=== PATIENT | female | born 1960 | race Caucasian/White ===

== ENCOUNTER 2016-10-10 19:42 | Emergency (ER) | payer MEDICAID, OTHER ==
[~2016-10-10] VITALS: Ht 160 cm; Wt 74.5 kg
[~2016-10-10 19:42] MED LIST: CYCL-319 PO; IBUP-1542 PO
[2016-10-10 19:48] VITALS: Ht 160 cm; Wt 74.5 kg
[2016-10-10] MEDS ORDERED: ALBUTEROL 0.5% (NEB) 2.5 MG/0.5 ML AMP NEB STA (20:32)
[2016-10-10] MEDS ORDERED: IPRATROPIUM (NEB) 0.5 MG/2.5 ML AMP NEB STA (20:32)
--- NOTE | 2016-10-10 20:48 | ERD ---
ER Documentation Chief Complaint Date/Time DATE: 10/10/16 TIME: 20:45 Chief Complaint FEVER WITH COUGH X 5 DAYS. CHEST AND UPPER BACK PAIN HPI 55-year-old female presents here in emergency department for complaints of fever , cough, shortness of breath and wheezing upper chest wall pain and upper back pain for 5 days. Patient started to have cough wheezing short of breath, patient has history of asthma, to leftover Cipro from left infection. Patient denies any dyspnea on exertion or dyspnea on lying down. Patient denies any dizziness. Patient denies any leg swelling. ROS All systems reviewed and are negative except as per history of present illness. Medications Home Meds Active Scripts Cyclobenzaprine Hcl* (Cyclobenzaprine Hcl*) 10 Mg Tablet, 10 MG PO TID, #15 TAB Prov:FAB WEEKS. LEATHER CRAFTER 07/13/15 Ibuprofen* (Motrin*) 600 Mg Tab, 600 MG PO Q6H Y for PAIN AND OR ELEVATED TEMP, #30 TAB Prov:FAB WEEKS. LEATHER CRAFTER 07/13/15 Allergies Allergies: Coded Allergies: ammonium chloride (Verified Allergy, Unknown, 07/12/15) hydrogen peroxide (Verified Allergy, Unknown, 07/12/15) niacin (Verified Allergy, Unknown, 07/12/15) PMhx/Soc Medical and Surgical Hx: pt denies Surgical Hx History of Surgery: No Anesthesia Reaction: No Hx Neurological Disorder: No Hx Respiratory Disorders: Yes (asthma) Hx Cardiac Disorders: No Hx Psychiatric Problems: No Hx Miscellaneous Medical Probl: No Hx Alcohol Use: No Hx Substance Use: No Hx Tobacco Use: No Smoking Status: Never smoker FmHx Family History: No coronary disease, No diabetes, No other Physical Exam Vitals Vital Signs Date Time Temp Pulse Resp B/P Pulse Ox O2 Delivery O2 Flow Rate FiO2 10/10/16 21:00 83 23 98 21 10/10/16 19:48 98.0 100 18 127/82 97 Physical Exam GENERAL: The patient is well developed and appropriate for usual state of health, in no apparent distress. CHEST: Clear to auscultation bilaterally. There are no rales, wheezes or rhonchi. HEART: Regular rate and rhythm. No murmurs, clicks, rubs or gallops. No S3 or S4. ABDOMEN: Soft, nontender and nondistended. Good bowel sounds. No rebound or guarding. No gross peritonitis. No gross organomegaly or masses. No Barger sign or McBurney point tenderness. BACK: No midline or flank tenderness. EXTREMITIES: Equal pulses bilaterally. There is no peripheral clubbing, cyanosis or edema. No focal swelling or erythema. Full range of motion. Grossly neurovascularly intact. NEURO: Alert and oriented. Cranial nerves 2-12 intact. Motor strength in all 4 extremities with 5/5 strength. Sensation grossly intact. Normal speech and gait. SKIN: There is no apparent rash or petechia. The skin is warm and dry. HEMATOLOGIC AND LYMPHATIC: There is no evidence of excessive bruising or lymphedema. No gross cervical, axillary, or inguinal lymphadenopathy. Results 24 hrs Current Medications Medications (Trade) Dose Ordered Sig/Mary Route PRN Reason Start Time Stop Time Status Last Admin Dose Admin Albuterol (Proventil 0.5% (Neb)) 5 mg ONCE STAT NEB 10/10/16 20:32 10/10/16 20:34 DC 10/10/16 20:55 Ipratropium [place] (Atrovent 0.02% (Neb)) 0.5 mg ONCE STAT NEB 10/10/16 20:32 10/10/16 20:34 DC 10/10/16 20:55 Breathing treatment of albuterol and Atrovent was given here in emergency department, after treatment, patient's lungs sounds are clear and patient's oxygenation is better. Patient verbalized feeling much better. EKG was done, read by me and is normal sinus rhythm at a rate of 87, normal axis , there is no ST changes or changes in the EKG that indicates any cardiac emergencies at this time. Patient's EKG was also reviewed by Dr. Santana. Impression: no acute findings on EKG PROCEDURE: XR Chest AP portable CLINICAL INDICATION: Chest pain, cough TECHNIQUE: An AP portable radiograph of the chest was submitted. COMPARISON: None. FINDINGS: Support Hardware: None Cardiovascular: The cardiovascular silhouette appears unremarkable. Lung Sal[place]ar: A 4 mm nodule projects to the lateral right upper lung zone. The lung saldivar are otherwise clear. Pleural Spaces: No pneumothorax or pleural effusion is identified. Osseous Structures: The osseous structures appear intact. Soft Tissues: The soft tissues appear generous. IMPRESSION: 1. Incidental 4 mm nodule seen in the lateral base of the right upper lobe. 812-month PA chest follow-up is indicated. 2. Otherwise, unremarkable portable chest. Physician Jose Guadalupe Date Time Electronically viewed and signed by Tracy Nettles Physician on 10/10/2016 21:53 RH/ CC: ROLY VÁZQUEZ LEATHER CRAFTER Procedures/MDM Medical Decision Making: Patient symptoms are most likely consistent with acute bronchitis, which viral in origin. There is low suspicion for Pneumonia at this time since patients lungs sounds are clear, patient O2 saturation is normal and patient doesnt show any respiratory distress. Patients chest xray doesnt show infiltrates or any other cardiopulmonary emergencies at this time. There is low suspicion for other cardiopulmonary emergencies at this time such as CHF, Pulmonary Embolism, Pneumothorax, Aortic Aneurysm or any other cardiopulmonary emergencies at this time. There is low suspicion for sepsis. Patient appears well and is hemodynamically stable. Fever is controlled with medicines. There is an incidental upon finding of a pulmonary nodule, patient was advised to follow on it, repeat CT scans or chest x-ray within 8-12 months. Disposition: Home. Condition: Stable Prescriptions: Ibuprofen GUAIFENESIN with codeine Zyrtec ibuprofen prednisone Instructions: Patient is advised to take medications as prescribed. Patient is advised to rest. Patient advised to increase fluid intake, do humidifier at home and if possible, do salt water gargles. Patient is advised that if symptoms are worse, shortness of breath, uncontrolled fever, stridor, vomiting, worst signs and symptoms to return to emergency department immediately. Otherwise, patient is advised to follow up with primary doctor in 5-7 days. Departure Diagnosis: Primary Impression: Acute bronchitis Bronchitis organism: unspecified organism Qualified Code: J20.9 - Acute bronchitis, unspecified organism Additional Impression: Pulmonary nodule Condition: Stable Patient Instructions: Bronchitis With Wheezing (Adult), Pulmonary Nodule, Solitary Additional Instructions: Patient is advised to take medications as prescribed. Patient is advised to rest. Patient advised to increase fluid intake, do humidifier at home and if possible, do salt water gargles. Patient is advised that if symptoms are worse, shortness of breath, uncontrolled fever, stridor, vomiting, worst signs and symptoms to return to emergency department immediately. Otherwise, patient is advised to follow up with primary doctor in 5-7 days. ROLY VÁZQUEZ. KRISTY Oct 10, 2016 20:48
--- NOTE | 2016-10-10 21:54 | RADRPT ---
PROCEDURE: XR Chest AP portable CLINICAL INDICATION: Chest pain, cough TECHNIQUE: An AP portable radiograph of the chest was submitted. COMPARISON: None. FINDINGS: Support Hardware: None Cardiovascular: The cardiovascular silhouette appears unremarkable. Lung Fontana: A 4 mm nodule projects to the lateral right upper lung zone. The lung fontana are other russell clear. Pleural Spaces: No pneumothorax or pleural effusion is identified. Osseous Structures: The osseous structures appear intact. Soft Tissues: The soft tissues appear generous. IMPRESSION: 1. Incidental 4 mm nodule seen in the lateral base of the right upper lobe. 812-month PA chest fol low-up is indicated. 2. Otherwise, unremarkable portable chest. Physician Jose Guadalupe Date Time Electronically viewed and signed by Tracy Nettles Physician on 10/10/2016 21:53 /
[2016-10-10] MEDS ORDERED: IBUP400T22 PO (22:02)
[2016-10-10] MEDS ORDERED: PRED50TA PO (22:02)
[2016-10-10] MEDS ORDERED: GUAI473L22 PO (22:02)
[2016-10-10] MEDS ORDERED: CETI10CA PO (22:02)
[2016-10-10] MEDS ORDERED: ALBU8.5H3 INH (22:02)
== END 2016-10-10 22:12 | disposition home or self-care (01) ==
LOC: FTE 19:42
DX: J20.9 Acute bronchitis, unspecified (principal); R91.1 Solitary pulmonary nodule; J45.901 Unspecified asthma with (acute) exacerbation
CPT/HCPCS: 71010; 93005; 94640; 94664; Z7502; Z7610